=== PATIENT | female | born 1965 | race Caucasian/White ===

== ENCOUNTER 2022-01-26 11:53 | Day surgery (SDC) | payer OTHER ==
[~2022-01-26] VITALS: Ht 165.1 cm; Wt 141.8 kg
[~2022-01-26 11:53] MED LIST: ARIP10TA38 PO; BUPR600F2 PO; LEVO75TA25 PO; OMEP20CA12 PO; PERCT PO; PRAZ2 PO; SODIUM CHLORIDE 0.9% 1,000 ML IV ONE; SODIUM CHLORIDE 0.9% 1,000 ML ONE; TIZA-211 PO; TRAZ-186 PO; VORT20TA PO
[2022-01-26] MEDS ORDERED: PROPOFOL 1% 20 ML VIAL IVP ONE (12:00)
[2022-01-26] MEDS ORDERED: LIDOCAINE/PF 2% 5 ML SYRINGE IVP ONE (12:00)
[2022-01-26 13:05] LABS: COVID AG,FIA SOURCE NASAL SWAB
== END 2022-01-26 17:25 | disposition home or self-care (01) ==
LOC: SURGERY 11:53
PROVIDERS: ATTEND Internal Medicine Gastroenterology
DX: Z12.11 Encounter for screening for malignant neoplasm of colon (principal); K64.8 Other hemorrhoids; I10 Essential (primary) hypertension; J45.909 Unspecified asthma, uncomplicated; R13.19 Other dysphagia; Z20.822 Contact with and (suspected) exposure to COVID-19; F17.210 Nicotine dependence, cigarettes, uncomplicated; Z87.01 Personal history of pneumonia (recurrent); Z98.890 Other specified postprocedural states; Z79.899 Other long term (current) drug therapy
CPT/HCPCS: 43239; 45378; 87426; 88305; C1769; J2704; J3490; J7030; C9803